=== PATIENT | female | born 1980 | race Caucasian/White ===

== ENCOUNTER 2023-06-29 04:24 | Emergency (ER) | payer BC, SELFPAY ==
[~2023-06-29] VITALS: Ht 162.6 cm; Wt 85.3 kg
[2023-06-29] MEDS: MOTRIN PO ONE (04:58)
[2023-06-29 05:01] VITALS: BP 123/86; PULSE 99; RESP 18; TEMP 98.2; O2SAT 95
[2023-06-29 06:04] VITALS: BP 122/87; PULSE 99; RESP 18; TEMP 98.2; O2SAT 95
== END 2023-06-29 06:07 | disposition home or self-care (01) ==
LOC: ER 04:24
DX: R07.81 Pleurodynia (principal)
CPT/HCPCS: 71046; 99283